=== PATIENT | female | born 1955 | race Caucasian/White ===

== ENCOUNTER 2018-09-19 08:30 | Outpatient (CLI) | payer MEDICARE, OTHER ==
[2018-09-19 08:59] LABS: Estimated GFR-MDRD - POC Greater than 90
--- NOTE | 2018-09-19 10:26 | CT ---
Contrast-enhanced images of soft tissue neck HISTORY: Calcified mass seen dentist office. Contrast-enhanced CT images soft tissue neck demonstrates the parotid spaces to be unremarkable. No evidence of lymphadenopathy seen. There there is marked calcification seen at the junction of the cervical right internal carotid arter y and the right petrous ICA. This is circumferential and coarsely calcified. This may represent a calcified area of aneurysmal dilatation. Superior inferior length measures approximately 2 cm. Axial diameter measures approximately 8.5 mm. The inner lumen diameter is not significantly increased. Contrast remains in the lumen and does flows past this area of the internal carotid artery calcificat ion into the more distal and intracranial portions of the ICA. Findings suggest a chronic likely partially thrombosed ICA aneurysm with central patent lumen. No other significant soft tissue neck abnormality seen. IMPRESSION: likely chronically calcified distal right ICA aneurysm.
[2018-09-19] MEDS ORDERED: ISOVUE-370 76%-LOCM 1 ML ONE (11:02)
--- NOTE | 2018-09-19 11:03 | CT ---
Contrast-enhanced images of soft tissue neck HISTORY: Calcified mass seen dentist office. Contrast-enhanced CT images soft tissue neck demonstrates the parotid spaces to be unremarkable. [place] no evidence of lymphadenopathy seen. There there is marked calcification seen at the junction of the cervical right internal carotid arter y and the petrous right ICA. This is circumferential and coarsely calcified. This may represent a calcified area of aneurysmal dilatation. Superior inferior length measures approximately 2 cm. Axial diameter measures approximately 8.5 mm. The inner lumen diameter is not significantly increased. Contrast remains in the lumen and does flows past this area of the internal carotid artery calcificat ion into the more distal and intracranial portions of the ICA. Findings suggest a chronic likely partially thrombosed ICA aneurysm with central patent lumen. No other significant soft tissue neck abnormality seen. IMPRESSION: likely chronically calcified distal right ICA aneurysm. Transcribed Date/Time: 09/19/2018 11:12 AM
== END 2018-09-19 08:31 | disposition home or self-care (01) ==
LOC: BICCT 08:30
PROVIDERS: ATTEND Specialist
DX: R22.1 Localized swelling, mass and lump, neck (principal); R93.89 Abnormal findings on diagnostic imaging of other specified body structures
CPT/HCPCS: 70470; 70491; 82565; Q9966

== ENCOUNTER 2020-02-27 08:58 | Outpatient (CLI) | payer MEDICARE ==
--- NOTE | 2020-02-27 09:27 | MMO ---
Right Breast MAMMO Unilat Diag DDI RT+LITTLE. CLINICAL HISTORY: Patient is 64 years old and is seen for diagnostic exam. VIEWS: The views performed were: . FILMS COMPARED: The present examination has been compared to prior imaging studies performed at [facility] on 02/19/2020, and at [facility] on 08/28/2008, 08/11/2011 and 02/25/2015. This study has been interpreted with the assistance of computer-aided detection. MAMMOGRAM FINDINGS: There are scattered fibroglandular densities. There is a stable focal asymmetry seen in the upper-outer region of the right breast. There are no suspicious masses, suspicious calcifications, or new areas of architectural distortion. IMPRESSION: THERE IS NO MAMMOGRAPHIC EVIDENCE OF MALIGNANCY. A ROUTINE FOLLOW-UP MAMMOGRAM IN 1 YEAR IS RECOMMENDED. THE RESULTS OF THIS EXAM WERE SENT TO THE PATIENT. ACR BI-RADS Category 2 - Benign finding MAMMOGRAPHY NOTE: 1. A negative mammogram report should not delay a biopsy if a dominant of clinically suspicious mass is present. 2. Approximately 10% to 15% of breast cancers are not detected by mammography. 3. Adenosis and dense breasts may obscure an underlying neoplasm. Reported by: LEONARDA LEDBETTER MD Electonically Signed: [id number]
== END 2020-02-27 08:59 | disposition home or self-care (01) ==
LOC: BICMAMMO 08:58
PROVIDERS: ATTEND Internal Medicine
DX: R92.1 Mammographic calcification found on diagnostic imaging of breast (principal)
CPT/HCPCS: 77065; G0279

== ENCOUNTER 2020-04-20 04:26 | Inpatient (IN) | payer MEDICARE ==
[2020-04-20 07:07] LABS: #Eosinphils 0.1 thou/uL (0.0-0.7); #Lymphocytes 0.8 thou/uL (1.20-3.40); #Monocytes 0.5 thou/uL (0.11-0.59); #Neutrophils 8.7 thou/uL (1.40-6.50); %Basophils 0.1 % (0.0-1.0); %Eosinophils 1.1 % (0.0-10.0); %Lymphocytes 7.7 % (21.0-51.0); %Monocytes 4.4 % (0.0-10.0); %Neutrophils 86.7 % (42.0-75.0); Hemoglobin 13.6 g/dL (12.0-16.0); Mean Corpuscular HGB CONC 33.2 g/dL (32.0-36.0); Mean Corpuscular Hemoglobin 30.5 pg (27.0-31.0); Mean Corpuscular Volume 92.1 fL (78.0-98.0); Mean Platelet Volume 6.9 fL (7.4-10.4); Platelet Count 190 thou/uL (130-400); RBC Distribution Width 13.4 % (11.5-14.5); Red Blood Cell (RBC) Count 4.45 mill/uL (4.20-5.40)
[2020-04-20 07:12] LABS: INR-International Normal Ratio 0.9; PTT 25.2 sec (22.9-36.1); Prothrombin Time 12.4 sec (12.0-14.7)
[2020-04-20 07:26] LABS: ALT (SGPT) 13 U/L (8-55); AST (SGOT) 12 U/L (5-34); Albumin 3.8 g/dL (3.4-4.8); Alkaline Phosphatase 59 U/L (40-110); Anion Gap 16 mmol/L (10-20); BUN (Urea Nitrogen) 19 mg/dL (9.8-20.1); Bilirubin, Total 0.5 mg/dL (0.2-1.2); Calc. Creatinine Clearance 0 mL/min (70-130); Calcium 8.9 mg/dL (7.8-10.44); Carbon Dioxide 28 mmol/L (23-31); Chloride 102 mmol/L (98-107); Globulin 2.5 g/dL (2.4-3.5); Glucose 145 mg/dL (80-115); Potassium 4.6 mmol/L (3.5-5.1); Protein, Total 6.3 g/dL (6.0-8.3); Sodium 141 mmol/L (136-145)
[2020-04-20 08:12] LABS: SARS-CoV-2 NAA Rapid Test Not Detected (NotDetected)
[2020-04-20] MEDS ORDERED: Fentanyl 100 MCG/2 ML VIAL ONE ×3 (08:14→10:53)
[2020-04-20] MEDS ORDERED: Promethazine HCl 25 MG/ML VIAL SLOW IVP PRN (10:37)
[2020-04-20] MEDS ORDERED: diphenhydrAMINE 50 MG/ML VIAL IVP PRN (10:37)
[2020-04-20] MEDS ORDERED: diphenhydrAMINE 25 MG CAP PO PRN (10:37)
[2020-04-20] MEDS ORDERED: Promethazine HCl 25 MG/ML VIAL IM PRN ×3 (10:37→10:48)
[2020-04-20] MEDS ORDERED: Zolpidem Tartrate 5 MG TAB PO PRN (10:37)
[2020-04-20] MEDS ORDERED: Ondansetron PF 4 MG/2 ML Vial IVP PRN ×2 (10:37→10:48)
[2020-04-20] MEDS ORDERED: Naloxone HCl 0.4 mg/ml Vial IV PRN (10:37)
[2020-04-20] MEDS ORDERED: diphenhydrAMINE 50 MG/ML VIAL IM PRN (10:37)
[2020-04-20] MEDS ORDERED: fentaNYL Citrate/PF 2,000 MCG in Sodium Chloride 0.9% 60 ML IV PRN (10:37)
[2020-04-20] MEDS ORDERED: Ondansetron HCl/PF 4 MG/2 ML Vial IVP PRN (10:37)
[2020-04-20] MEDS ORDERED: Communication Order-Pharmacy FS SCH (10:45)
[2020-04-20] MEDS ORDERED: Dextrose 5% in Water 1,000 ML IV PRN (10:48)
[2020-04-20] MEDS ORDERED: hydrALAZINE 20 MG/ML VIAL SLOW IVP PRN (10:48)
[2020-04-20] MEDS ORDERED: Dextrose 50% Abboject 50 ML SYRINGE SLOW IVP PRN (10:48)
[2020-04-20] MEDS ORDERED: Ketorolac Tromethamine 30 MG/ML VIAL IVP PRN (10:48)
--- NOTE | 2020-04-20 10:51 | HP ---
CHIEF COMPLAINT: Incarcerated hernia. HISTORY OF PRESENT ILLNESS: This is a 64-year-old female with a history of abdominal pain for a few days, associated with nausea, vomiting, abdominal swelling. The patient previously had a large uterine fibroid removed. In the process of that, she had to be transferred to [place] to Dr. Nagy, so she has quite a large midline incision. CT scan shows 3 hernias, one of which has small intestine in it that appears to be obstructed. The patient's pain has been difficult to control. She was transferred in from [facility]. PAST MEDICAL HISTORY: Includes high cholesterol, hypertension, diabetes mellitus. PAST SURGICAL HISTORY: Hysterectomy. MEDICATIONS: Taken daily include: 1. Lisinopril. 2. Statin. 3. Metformin. ALLERGIES: NO KNOWN DRUG ALLERGIES. SOCIAL HISTORY: No smoking or alcohol or other drugs. REVIEW OF SYSTEMS: Ten-system review of systems is otherwise negative unless described above. PHYSICAL EXAMINATION: HEENT: Sclerae anicteric. Oropharynx clear. NECK: No lymphadenopathy. CHEST: Clear. HEART: Regular rate. ABDOMEN: Soft. Diffusely tender, moderately without guarding or rebound. Because of her obesity, it is difficult to feel her hernias. CT scan reviewed showing above hernia-type changes. ASSESSMENT: Incarcerated incisional hernia. PLAN: Incisional hernia repair with mesh. If possible, she may need small bowel resection if ischemia present. We will do this today urgently. Job ID: [id number]
--- NOTE | 2020-04-20 11:09 | OP ---
DATE OF PROCEDURE: 04/20/2020 PREOPERATIVE DIAGNOSIS: Incarcerated incisional hernia. POSTOPERATIVE DIAGNOSIS: Incarcerated incisional hernia. PROCEDURE: Incisional hernia repair with mesh, 15 [address] ANESTHESIA: General. ESTIMATED BLOOD LOSS: Minimal. COMPLICATIONS: None. FINDINGS: Three different hernias. The one in the umbilicus has some small intestine that is nonischemic. DESCRIPTION OF PROCEDURE: The patient was taken to the operating room and laid supine on the operating room table. After general anesthetic was obtained, a Hernandez was placed. The abdomen was shaved, prepped, and draped in a sterile fashion. A midline incision was made. The abdomen was able to be entered in the xiphoid area without injury. The midline fascia was opened through the hernia sac at the umbilicus without injury. All posterior abdominal wall adhesions were taken down. There were several small hernias all of which had a loop of small intestine or colon and then this was easily to reduce. All adhesions were taken down exposing the posterior fascia throughout. The 15 x [address] mesh was brought into the sterile field. It is the one with the skirt on top, placed in an underlay fashion and sewed to the posterior fascia using U-stitch of Prolene all the way around without injury. This completely covered the defect. All instrument counts, needle counts, lap counts were correct. Midline fascia was then closed using #1 PDS from the top and the bottom and tied in the middle. Subcutaneous tissues were irrigated and the wound was closed over a 19-round drain using 3-0 Vicryl, 4-0 Monocryl, and Dermabond. The patient was sent to Recovery in stable condition. All instrument counts, needle counts, lap counts were correct. Job ID: [id number]
[2020-04-20] MEDS ORDERED: Dexamethasone 20 MG/5 ML VIAL ONE (12:47)
[2020-04-20] MEDS ORDERED: Glycopyrrolate 0.2 MG/ML 5 ML SYRINGE ONE (12:47)
[2020-04-20] MEDS ORDERED: Ondansetron PF 4 MG/2 ML Vial ONE (12:47)
[2020-04-20] MEDS ORDERED: PROPOFOL 200 MG/20 ML VIAL ONE (12:47)
[2020-04-20] MEDS ORDERED: Lidocaine 1% PF 5 ML VIAL ONE (12:47)
[2020-04-20] MEDS ORDERED: PHENYLEPHRINE-NS 100 MCG/ML 10 ML SYRINGE ONE (12:47)
[2020-04-20] MEDS ORDERED: Rocuronium Bromide 10 MG/ML (10ML VIAL) ONE (12:47)
[2020-04-20] MEDS ORDERED: Succinylcholine 200 MG/10 ml SYRINGE FS ONE (12:47)
[2020-04-20] MEDS: Sodium Chloride 0.9% 1,000 ML IV SCH ×2 (17:00→20:21)
[2020-04-20] MEDS: Enoxaparin Sodium 40 MG/0.4 ML SYRINGE SC SCH (20:16)
[2020-04-20] MEDS: Famotidine/PF 20 mg/2ml Vial SLOW IVP SCH (20:16)
[2020-04-20] MEDS: Famotidine 20 MG TAB PO SCH (20:17)
[2020-04-20 22:32] VITALS: BMI 43.4
[2020-04-21 05:40] LABS: #Lymphocytes 1.2 thou/uL (1.20-3.40); #Monocytes 0.7 thou/uL (0.11-0.59); #Neutrophils 7.8 thou/uL (1.40-6.50); %Eosinophils 0.2 % (0.0-10.0); %Lymphocytes 12.7 % (21.0-51.0); %Neutrophils 80.2 % (42.0-75.0); Hemoglobin 11.6 g/dL (12.0-16.0); Mean Corpuscular HGB CONC 31.3 g/dL (32.0-36.0); Mean Corpuscular Hemoglobin 29.1 pg (27.0-31.0); Mean Corpuscular Volume 93.1 fL (78.0-98.0); Mean Platelet Volume 7.5 fL (7.4-10.4); Platelet Count 164 thou/uL (130-400); RBC Distribution Width 13.2 % (11.5-14.5); Red Blood Cell (RBC) Count 3.98 mill/uL (4.20-5.40); White Blood Cell (WBC) Count 9.7 thou/uL (4.8-10.8)
[2020-04-21 05:48] LABS: Anion Gap 14 mmol/L (10-20); BUN (Urea Nitrogen) 12 mg/dL (9.8-20.1); Calc. Creatinine Clearance 157 mL/min (70-130); Calcium 8.2 mg/dL (7.8-10.44); Carbon Dioxide 28 mmol/L (23-31); Chloride 103 mmol/L (98-107); Glucose 130 mg/dL (80-115); Potassium 3.7 mmol/L (3.5-5.1); Sodium 141 mmol/L (136-145)
[2020-04-21] MEDS: Famotidine/PF 20 mg/2ml Vial SLOW IVP SCH ×2 (08:04→21:02)
--- NOTE | 2020-04-21 08:43 | PRG ---
DATE OF SERVICE: 04/21/2020 SUBJECTIVE: Ms. Rogers is doing well. She has no complaints. She did not have any nausea overnight. She was out of bed once yesterday. PHYSICAL EXAMINATION: VITAL SIGNS: She is afebrile. Vital signs are stable. ABDOMEN: Soft, appropriately tender. Wounds are healing well. Drain is serosanguineous. ASSESSMENT: Postoperative day #1, incisional hernia repair. PLAN: Try clear liquids. Decrease IV fluids. Encouraged ambulation. Job ID: [id number]
[2020-04-21] MEDS: Sodium Chloride 0.9% 1,000 ML IV SCH ×2 (11:53→12:22)
[2020-04-21] MEDS: Famotidine 20 MG TAB PO SCH ×2 (11:53→21:02)
[2020-04-21] MEDS: HumaLOG 300 UNITS/3 ML VIAL SC PRN (12:01)
[2020-04-21] MEDS: Enoxaparin Sodium 40 MG/0.4 ML SYRINGE SC SCH (21:01)
[2020-04-22] MEDS: Sodium Chloride 0.9% 1,000 ML IV SCH ×2 (01:39→12:07)
[2020-04-22] MEDS: Famotidine/PF 20 mg/2ml Vial SLOW IVP SCH ×2 (09:03→20:31)
[2020-04-22] MEDS: Famotidine 20 MG TAB PO SCH ×2 (09:05→20:30)
--- NOTE | 2020-04-22 09:10 | PDOC.GSPN ---
Surgery Progress Note: Subj - Subjective Patient reports: pain well controlled, tolerating liquids well Narrative: Ms. Rogers is doing well. She has gotten out of bed more and was able to walk ar ound. Her pain is well controlled; she mostly notes pain when getting up out of the bed or with standing up. She will try solid foods today. She reports no nausea, vomiting, and has not had a bowel movement or passed gas. Surgery Progress Note: Obj - Vital signs Vital signs: Vital Signs - Most Recent Temp Pulse Resp BP Pulse Ox 98.4 F 112 H 20 138/84 91 L 04/22/20 08:00 04/22/20 08:00 04/22/20 08:00 04/22/20 08:00 04/22/20 08:00 - Physical Exam General: no distress, no pain Cardiovascular: regular rate and rhythm Respiratory: clear to auscultation Abdomen: soft, positive bowel sounds, appropriately tender Psychiatric: oriented to time, oriented to person, oriented to place Wound: dressing clean,dry,intact, healing well, drainage (50 mL) Surgery Progress Note: Results - Labs Result Diagrams: 04/21/20 05:13 04/21/20 05:13 Lab results: Laboratory Results - last 12 hr 04/22/20 05:14 POC Glucose 130 H Surgery Progress Note: A/P - Problem (1) Incisional hernia Current Visit: Yes Code(s): K43.2 - INCISIONAL HERNIA WITHOUT OBSTRUCTION OR GANGRENE Status: Acute - Plan Plan: Encouraged her to sit up in the chair as this helped some abdominal pressu re/pain she reported when lying in the bed. Will continue current medication regimen since pain is under control; pain mainly occurs with sitting or standing up. Will see how she tolerates solid food. We discussed discharge, and she reported that she would like to see if she can get up from the bed/chair without too much pain.
[2020-04-22] MEDS ORDERED: HYDROcodone/Acetaminophen 10/325 mg Tablet PO PRN ×2 (11:24→12:00)
[2020-04-22] MEDS: HumaLOG 300 UNITS/3 ML VIAL SC PRN (12:07)
--- NOTE | 2020-04-22 13:35 | PRG ---
DATE OF SERVICE: SUBJECTIVE: Postop day 2, incisional hernia repair with mesh. Ms. oRgers is tolerating the liquid diet without difficulty. Her Hernandez was removed this morning. She has already urinated. She is ambulatory. She is complaining of bloating. OBJECTIVE: VITAL SIGNS: She is afebrile. Her vital signs are stable. ABDOMEN: Soft. It is distended, but she does have some bowel sounds. Her midline wound is healing well. CAMRON drain is serosanguineous. ASSESSMENT: Postop day 2, ventral incisional hernia repair with mesh. PLAN: Continue full liquids today. Continue to encourage ambulation. We will slow down on her IV fluids. Possible home tomorrow. Job ID: [id number]
[2020-04-22] MEDS: HYDROcodone/Acetaminophen 10/325 mg Tablet PO PRN ×2 (15:55→20:30)
[2020-04-22] MEDS: Enoxaparin Sodium 40 MG/0.4 ML SYRINGE SC SCH (20:31)
[2020-04-23] MEDS: HYDROcodone/Acetaminophen 10/325 mg Tablet PO PRN ×2 (06:09→11:41)
--- NOTE | 2020-04-23 07:16 | PDOC.GSPN ---
Surgery Progress Note: Subj - Subjective Patient reports: no new complaints, feels better, pain well controlled, tolerati ng liquids well, no bowel movement Narrative: Patient feels much better this morning. She says that the bloating she had previously felt was likely due to needing to urinate and was relieved as soon as she was able to void. She is unsure whether or not she has passed flatus. She reports feeling best when she is sitting in the chair in her room and says that she is in 2/10 pain. Her pain increases to 6/10 when she tries to get up from a supine position. She has been ambulatory over the past 2 days with little difficulty. Pt denies dizziness/lightheadedness, dyspnea, chest pain, palpitations, N/V, bloating, or cramping. No recent changes in sensation. Surgery Progress Note: Obj - Vital signs Vital signs: Vital Signs - Most Recent Temp Pulse Resp BP Pulse Ox 98.6 F 93 19 120/76 95 04/23/20 04:00 04/23/20 04:00 04/23/20 04:00 04/23/20 04:00 04/23/20 04:00 - Physical Exam General: no distress, well developed, well nourished Cardiovascular: regular rate and rhythm Respiratory: clear to auscultation, normal expansion, normal respiratory effort, breath sounds present Abdomen: soft, nondistended, positive bowel sounds, appropriately tender Hernia: negative: incisional, incarcerated Psychiatric: memory intact, oriented to time, oriented to person, oriented to place, speech is normal Wound: dressing clean,dry,intact, healing well, drainage (CAMRON drain has minimal amount of serosanguinous fluid) Surgery Progress Note: Results - Labs Result Diagrams: 04/21/20 05:13 04/21/20 05:13 Lab results: Laboratory Results - last 12 hr 04/22/20 04/23/20 20:15 05:33 POC Glucose 107 H 125 H Surgery Progress Note: A/P - Plan Plan: Postop day 3 from ventral incisional hernia incarceration repair Patient is ready for discharge later today. She is tolerating liquids well and able to ambulate on her own. D/c meds include Sapulpa 10/325 for pain control at home and Mirilax to help her pass BM since the patient reports difficulty with constipation in the past.
[2020-04-23] MEDS: Famotidine/PF 20 mg/2ml Vial SLOW IVP SCH (08:29)
[2020-04-23] MEDS: Famotidine 20 MG TAB PO SCH (08:36)
--- NOTE | 2020-04-23 10:28 | DIS ---
DATE OF ADMISSION: 04/20/2020 DATE OF DISCHARGE: 04/23/2020 ADMITTING DIAGNOSIS: Incarcerated incisional hernia. DISCHARGE DIAGNOSIS: Incarcerated incisional hernia. PROCEDURES: Incarcerated incisional hernia repair with mesh by Dr. Champion without complication. CONDITION ON DISCHARGE: Improved. STAFF: Jones Champion MD HOSPITAL COURSE: The patient did well postop. On postop day 2, she is ambulatory. Pain is well controlled. She is tolerating the full liquid diet without difficulty. Her drain is removed. She is being discharged home. Prescriptions for hydrocodone and Zofran sent to her pharmacy. She will follow up with me in 1 week. She will call my office sooner if she is having any issues. Job ID: [id number]
[2020-04-23 13:03] VITALS: BP 130/99; TEMP 98.2
== END 2020-04-23 13:55 | disposition home or self-care (01) | DRG 354 ==
LOC: ERS 04:26 → SURG A 10:48
PROVIDERS: ADMIT Surgery; ATTEND Surgery
PROC: 0WUF0JZ Supplement Abdominal Wall with Synthetic Substitute, Open Approach (ICD-10-PCS; principal; 2020-04-20)
DX: K43.0 Incisional hernia with obstruction, without gangrene (principal); Z68.41 Body mass index [BMI] 40.0-44.9, adult; Z20.822 Contact with and (suspected) exposure to COVID-19; I10 Essential (primary) hypertension; E11.9 Type 2 diabetes mellitus without complications; E78.00 Pure hypercholesterolemia, unspecified; E66.9 Obesity, unspecified; Z90.710 Acquired absence of both cervix and uterus; Z79.84 Long term (current) use of oral hypoglycemic drugs; Z79.899 Other long term (current) drug therapy
CPT/HCPCS: 36415; 36416; 80048; 80053; 83605; 85025; 85610; 85730; C1781; J0690; J1100; J1650; J2405; J2704; J3010; J3490; S0028; U0002

== ENCOUNTER 2020-06-07 07:17 | Observation (INO) | payer MEDICARE ==
[2020-06-07 07:53] LABS: Mean Corpuscular HGB CONC 34.9 g/dL (32.0-36.0); Mean Corpuscular Hemoglobin 31.2 pg (27.0-31.0); Mean Corpuscular Volume 89.3 fL (78.0-98.0); Mean Platelet Volume 6.9 fL (7.4-10.4); Platelet Count 136 thou/uL (130-400); RBC Distribution Width 13.3 % (11.5-14.5); Red Blood Cell (RBC) Count 4.16 mill/uL (4.20-5.40); White Blood Cell (WBC) Count 5.2 thou/uL (4.8-10.8)
[2020-06-07 08:14] LABS: ALT (SGPT) 436 U/L (8-55); AST (SGOT) 891 U/L (5-34); Albumin 3.9 g/dL (3.4-4.8); Alkaline Phosphatase 129 U/L (40-110); Anion Gap 16 mmol/L (10-20); BUN (Urea Nitrogen) 22 mg/dL (9.8-20.1); Bilirubin, Total 1.7 mg/dL (0.2-1.2); Calc. Creatinine Clearance 0 mL/min (70-130); Calcium 8.8 mg/dL (7.8-10.44); Carbon Dioxide 27 mmol/L (23-31); Chloride 98 mmol/L (98-107); Globulin 2.7 g/dL (2.4-3.5); Glucose 138 mg/dL (80-115); Lipase 155 U/L (8-78); Potassium 3.5 mmol/L (3.5-5.1); Protein, Total 6.6 g/dL (5.8-8.1); Sodium 137 mmol/L (136-145)
[2020-06-07 08:23] LABS: Band 42 % (5-11); Lymphocytes 9 % (21-51); MDiff Complete? YES; Metamyelocyte 1 % (0-0); Monocytes 1 % (0-10); Neutrophil 44 % (42-75); Platelet Morphology Comment Appears Adequate; Polychromasia SLIGHT = 2-3 cells (100X) (0-2/hpf); Reactive Lymphocytes 3 % (0-10); Reflex for Review?? YES; Vacuoles SLIGHT
[2020-06-07 08:44] LABS: Bilirubin Negative (Negative); Blood, Urine Negative (Negative); Clarity Clear (Clear); Glucose, Urine (Dipstick) Normal (Negative); Ketone, Urine Negative (Negative); Leukocyte Negative Leu/uL (Negative); Nitrite Negative (Negative); Protein, Urine (Dipstick) Negative (Neg-Trace); Specific Gravity, Urine 1.018 (1.002-1.036); Urobilinogen Normal mg/dL (Less than 2); pH, Urine 5.5 (5.0-9.0)
--- NOTE | 2020-06-07 09:51 | CT ---
CT ABDOMEN AND PELVIS WITH CONTRAST: HISTORY: Abdominal pain. COMPARISON: None. FINDINGS: Lung bases are relatively clear. No pericardial effusion. Small diverticula in the 2nd portion of the duodenum. There are numerous supraumbilical and infraumbilical fat-containing hernias. Inflammation along an i nfraumbilical and periumbilical fat-containing hernia. Possible prior mesh repair of the ventral her nias with inflammation of the subcutaneous fat on the left abdominal panus extending t the skin surfa ce. Large midline vertical abdominal scar. Mild distention of the gallbladder. No intrahepatic or extrahepatic biliary dilatation. Small secon d portion duodenum diverticulum. Pancreas is unremarkable as well as the adrenal glands. No hydrone phrosis. There is grade II anterolisthesis of L5 over S1. No acute osseous abnormality. Celiac trunk and superior mesenteric arteries are patent. A few small cholelithiasis within the gall bladder neck. IMPRESSION: 1. Extensive left lower abdominal panus cellulitis with inflammation extending down to the ventral h ernia mesh. There is a trace fluid collection just superficial to the mesh extending from the bottom . The caudal portion of the mesh craniad 8 cm. This could be reactive or due to relatively recent p lacement of the ventral hernia mesh. 2. Numerous small fat-containing supraumbilical subxiphoid fat-containing hernias. 3. Low-grade cholelithiasis and mild gallbladder distention without overt evident of cholecystitis. 4. Small second portion duodenum diverticulum. 5. No bowel obstruction. 6. Normal appendix. 7. Likely reactive right pericolic gutter lymph node axilla measuring 9 mm short axis. POS: HOME
--- NOTE | 2020-06-07 10:24 | ULT ---
RIGHT UPPER QUADRANT ABDOMINAL ULTRASOUND: COMPARISON: CT abdomen/pelvis 06/07/2020. HISTORY: Abdominal pain. TECHNIQUE: Multiplanar, lucio scale, and color Doppler images were obtained in a right upper quadrant abdominal u ltrasound. FINDINGS: There is mild diffuse fatty infiltration of the liver. No focal liver lesions are seen. The gallbla dder contains a small stone. There is no gallbladder wall thickening or pericholecystic fluid. The common bile duct is upper normal measuring 7 mm. The visualized portions of the pancreas are unremarkable. The right kidney is normal in echogenicity without hydronephrosis or calculus and measures 13.4 cm in length. IMPRESSION: 1. Cholelithiasis. 2. Fatty liver. POS: EAA
[2020-06-07 10:58] LABS: Critical Call Chem-Lactate NUR.KR7@1057; Lactic Acid 4.1 mmol/L (0.5-2.2)
[2020-06-07] MEDS ORDERED: Iopamidol-370 76% 500 ML 1 ML ONE (11:09)
[2020-06-07] MEDS ORDERED: Mag-Al 1200 mg/1200 mg/30 ML UDCUP PO PRN (12:25)
[2020-06-07] MEDS ORDERED: hydrALAZINE 20 MG/ML VIAL SLOW IVP PRN (12:25)
[2020-06-07] MEDS ORDERED: Acetaminophen 325 MG TAB PO PRN (12:25)
[2020-06-07] MEDS ORDERED: HumaLOG 300 UNITS/3 ML VIAL SC PRN (12:25)
[2020-06-07] MEDS ORDERED: Dextrose 50% Abboject 50 ML SYRINGE SLOW IVP PRN ×2 (12:25)
[2020-06-07] MEDS ORDERED: Ondansetron PF 4 MG/2 ML Vial IVP PRN (12:25)
[2020-06-07] MEDS ORDERED: Morphine 2 MG/ML VIAL SLOW IVP PRN (12:25)
[2020-06-07] MEDS ORDERED: Calcium Carbonate 500 MG ChewTAB PO PRN (12:25)
[2020-06-07] MEDS ORDERED: Morphine 4 MG/ML VIAL SLOW IVP PRN (12:25)
[2020-06-07] MEDS ORDERED: Dextrose 5% in Water 1,000 ML IV PRN (12:25)
[2020-06-07] MEDS ORDERED: Milk Of Magnesia 30 ML UDCUP PO ONE (12:25)
[2020-06-07] MEDS ORDERED: Promethazine HCl 25 MG/ML VIAL IM PRN (12:25)
[2020-06-07] MEDS ORDERED: Milk Of Magnesia 30 ML UDCUP ONE (12:44)
[2020-06-07] MEDS ORDERED: Pantoprazole 40 MG VIAL ONE (12:51)
[2020-06-07] MEDS: Pantoprazole 40 MG VIAL IVP SCH (12:55)
[2020-06-07] MEDS: Sodium Chloride 0.9% 1,000 ML IV SCH ×2 (13:41→19:48)
--- NOTE | 2020-06-07 15:57 | HP ---
CHIEF COMPLAINT: Abdominal pain. HISTORY OF PRESENT ILLNESS: This is a 64-year-old female, who is status post incisional hernia repair with mesh on 04/20/2020 by myself. She had presented with incarcerated incisional hernia. This was secondary to previous gynecologic/oncology procedure by Dr. Nagy in [place]. Postop course was uneventful. She had acute onset of severe pain overnight, was seen at an outpatient emergency room, whose CT scanner was down, so she was sent here for higher level of care. CT scan shows no significant recurrent hernia. No evidence of fluid collection near the mesh. No evidence of obstruction in the abdomen. The gallbladder did appear distended on the CT scan. She was also found to have elevation of her liver function test. Ultrasound here shows presence of a gallstone. Common bile duct is normal. No gallbladder wall thickening or pericholecystic fluid. The patient's pain has resolved, although she does feel bloated. She states it has been several days since she had a bowel movement. PAST MEDICAL HISTORY: Includes hypercholesteremia, hypertension, diabetes. PAST SURGICAL HISTORY: Hysterectomy. HOME MEDICATIONS: 1. Statin. 2. Metformin. 3. Vitamins. 4. Lisinopril. ALLERGIES: NO KNOWN DRUG ALLERGIES. SOCIAL HISTORY: No smoking, alcohol, or other drugs. She is . REVIEW OF SYSTEMS: Ten-system review of systems is otherwise negative unless described above. PHYSICAL EXAMINATION: VITAL SIGNS: Her pulse is 105, her blood pressure was 157/85, respirations are normal at 14. HEART: Regular rate. CHEST: Bilateral clear. ABDOMEN: Soft, minimally distended. No tenderness on my exam now. Midline incision from hernia repair is nearly completely healed without evidence of drainage, open wound, no evidence of cellulitis, no overt obvious recurrent hernia. ASSESSMENT: 1. Abdominal pain, diffuse and severe, resolved. 2. Elevation of liver function test, presence of gallstones on ultrasound, but symptoms not consistent with biliary disease. 3. Constipation. PLAN: Admit to the hospital, allow clear liquids, we will give her a dose of milk of magnesia, and recheck the liver function test in the morning. If liver function test persistently elevated, options would be laparoscopic cholecystectomy with cholangiogram versus HIDA scan to further evaluate the biliary tract. Dr. Rendon will be seeing her for me. Job ID: [id number]
[2020-06-07 19:15] VITALS: BMI 40.6
[2020-06-07] MEDS ORDERED: Enoxaparin Sodium 40 MG/0.4 ML SYRINGE SC SCH (21:00)
[2020-06-08 07:12] LABS: #Eosinphils 0.1 thou/uL (0.0-0.7); #Lymphocytes 0.4 thou/uL (1.20-3.40); #Monocytes 0.3 thou/uL (0.11-0.59); #Neutrophils 8.6 thou/uL (1.40-6.50); %Eosinophils 1.1 % (0.0-10.0); %Lymphocytes 4.5 % (21.0-51.0); %Monocytes 3.1 % (0.0-10.0); %Neutrophils 91.4 % (42.0-75.0); Hemoglobin 11.1 g/dL (12.0-16.0); Mean Corpuscular HGB CONC 31.4 g/dL (32.0-36.0); Mean Corpuscular Hemoglobin 28.4 pg (27.0-31.0); Mean Corpuscular Volume 90.3 fL (78.0-98.0); Mean Platelet Volume 7.5 fL (7.4-10.4); Platelet Count 129 thou/uL (130-400); RBC Distribution Width 13.7 % (11.5-14.5); Red Blood Cell (RBC) Count 3.92 mill/uL (4.20-5.40); White Blood Cell (WBC) Count 9.4 thou/uL (4.8-10.8)
[2020-06-08 07:49] LABS: ALT (SGPT) 399 U/L (8-55); AST (SGOT) 282 U/L (5-34); Albumin 3.3 g/dL (3.4-4.8); Alkaline Phosphatase 119 U/L (40-110); Anion Gap 9 mmol/L (10-20); BUN (Urea Nitrogen) 13 mg/dL (9.8-20.1); Bilirubin, Total 3.8 mg/dL (0.2-1.2); Calc. Creatinine Clearance 142 mL/min (70-130); Calcium 8.2 mg/dL (7.8-10.44); Carbon Dioxide 30 mmol/L (23-31); Chloride 104 mmol/L (98-107); Globulin 2.4 g/dL (2.4-3.5); Glucose 149 mg/dL (80-115); Lipase 12 U/L (8-78); Potassium 3.3 mmol/L (3.5-5.1); Protein, Total 5.7 g/dL (5.8-8.1); Sodium 140 mmol/L (136-145)
[2020-06-08] MEDS: Pantoprazole 40 MG VIAL IVP SCH (08:55)
[2020-06-08] MEDS: Sodium Chloride 0.9% 1,000 ML IV SCH (08:55)
[2020-06-08] MEDS ORDERED: Lisinopril 2.5 MG TAB PO SCH (09:00)
[2020-06-08] MEDS ORDERED: Rocuronium Bromide 10 MG/ML (10ML VIAL) ONE (09:22)
[2020-06-08] MEDS ORDERED: ePHEDrine 50 MG/ML VIAL ONE (09:22)
[2020-06-08] MEDS ORDERED: PROPOFOL 200 MG/20 ML VIAL ONE (09:22)
[2020-06-08] MEDS ORDERED: Ketorolac Tromethamine 30 MG/ML VIAL ONE (09:22)
[2020-06-08] MEDS ORDERED: Lidocaine 1% PF 5 ML VIAL ONE (09:22)
[2020-06-08] MEDS ORDERED: PHENYLEPHRINE-NS 100 MCG/ML 10 ML SYRINGE ONE (09:22)
[2020-06-08] MEDS ORDERED: Dexamethasone 20 MG/5 ML VIAL ONE (09:22)
[2020-06-08] MEDS ORDERED: Glycopyrrolate 0.2 MG/ML 5 ML SYRINGE ONE (09:22)
[2020-06-08] MEDS ORDERED: Ondansetron PF 4 MG/2 ML Vial ONE (09:22)
[2020-06-08] MEDS ORDERED: Ketorolac Tromethamine 30 MG/ML VIAL IVP SCH (10:30)
[2020-06-08] MEDS ORDERED: Iothalamate Meglumine 60% 50 ML VIAL FS ONE ×2 (11:06→11:24)
[2020-06-08] MEDS ORDERED: Indomethacin 50 MG SUPP ONE (11:07)
[2020-06-08] MEDS ORDERED: Bupivacaine 0.25% HCL 30 ML VIAL ONE (11:15)
[2020-06-08] MEDS ORDERED: XYLOCAINE 2%-EPI 1:100,000 20 ML VIAL ONE (11:15)
[2020-06-08] MEDS ORDERED: Fentanyl 100 MCG/2 ML VIAL ONE ×2 (11:23→13:47)
[2020-06-08] MEDS ORDERED: Dexmedetomidine 200 MCG/2 ML VIAL ONE (11:23)
--- NOTE | 2020-06-08 12:05 | PRG ---
DATE OF SERVICE: 06/08/2020 SUBJECTIVE: Carolyn Rogers is a 64-year-old female, Dr. Champion, admitted yesterday for abdominal pain. CAT scan and ultrasound revealed gallstones. Ultrasound revealed a 9 mm bile duct. Yesterday, her white count was 9, hemoglobin 11.1, bilirubin 1.7 yesterday, 3.8 today. AST and ALT 891 and 436 respectively yesterday, and today 282 and 399. Alkaline phosphatase 129 yesterday, 119 today. The patient reports when she presented that she had severe upper abdominal pain radiating to her back associated with nausea and vomiting. She denies having such episodes of biliary type pain in the past. She states although her pain is markedly improved. She is still having some discomfort. Her bile duct was 9 mm on her ultrasound. She has seen Dr. Winston in the past for colonoscopy and due for repeat studies in the near future. The patient has no allergies. Does not smoke. PAST MEDICAL HISTORY: Hypercholesterolemia, hypertension, diabetes, oral hypoglycemics, noninsulin dependent. PAST SURGICAL HISTORY: She had a hysterectomy for benign fibroid, initially presenting to [facility], attempting hysterectomy, suffering complications requiring transfer to [place] for which she spent 3-4 weeks in ICU, eventually undergoing hysterectomy by Dr. Nagy for this benign entity. MEDICATIONS: She has had home medications, 1. Statin. 2. Metformin. 3. Vitamins. 4. Lisinopril. FAMILY HISTORY: Noncontributory. She never had any cardiac symptoms or cardiac evaluation or reason to do so. PHYSICAL EXAMINATION: VITAL SIGNS: 5 foot 1 inch, 215 pounds, 40 BMI, 97.6, 89, 115/76. LUNGS: Clear to auscultation. CARDIAC: Regular rate and rhythm without murmur or gallop. ABDOMEN: Soft. Tenderness in right upper quadrant with mild guarding. Positive Kim's. EXTREMITIES: Unremarkable. ASSESSMENT AND PLAN: Suspect acute cholecystitis, possible choledocholithiasis with her bile duct upper limits normal, lower limits abnormal, 9 mm dilatation at age 64 and her elevated liver function tests, this could lead to acute cholecystitis or choledocholithiasis. We would recommend laparoscopic video cholecystectomy, cholangiograms and if necessary based on she might need ERCP. I have discussed this with the patient and her , the risks of open operation and ERCP. I have discussed with Dr. Winston. Plan and recommendation today is laparoscopic cholecystectomy, cholangiograms and based on cholangiograms, ERCP if indicated. Questions answered. Risks and benefits discussed. Job ID: [id number]
[2020-06-08] MEDS ORDERED: PACU-Morphine 4MG/ML VIAL SLOW IVP PRN (13:33)
[2020-06-08] MEDS ORDERED: Ondansetron HCl/PF 4 MG/2 ML Vial IVP PRN (13:33)
[2020-06-08] MEDS ORDERED: Promethazine HCl 25 MG/ML VIAL IM PRN (13:33)
[2020-06-08] MEDS ORDERED: HYDROmorphone 2 MG/ML VIAL SLOW IVP PRN (13:33)
[2020-06-08] MEDS ORDERED: Promethazine HCl 25 MG/ML VIAL SLOW IVP PRN (13:33)
--- NOTE | 2020-06-08 13:46 | RAD ---
OPERATIVE CHOLANGIOGRAM: 06/08/20 HISTORY: Intraoperative film. Contrast is injected showing filling of a common duct and the proximal hepatic ducts without evidence of filling defect emptying into the duodenum is present. IMPRESSION: Unremarkable operative cholangiogram. POS: GRACE
[2020-06-08] MEDS ORDERED: Ibuprofen 600 MG TAB PO PRN (14:19)
[2020-06-08] MEDS ORDERED: Acetaminophen 500 MG TAB PO PRN (14:19)
[2020-06-08] MEDS ORDERED: traMADol HCl 50 MG TAB PO PRN (14:19)
[2020-06-08 16:49] VITALS: BP 136/83; TEMP 97.7
[2020-06-08] MEDS ORDERED: metFORMIN 500 MG TAB PO SCH (17:00)
--- NOTE | 2020-06-08 18:43 | DIS ---
DATE OF ADMISSION: 06/07/2020 DATE OF DISCHARGE: 06/08/2020 DISCHARGE DIAGNOSES: Cholecystitis, cholelithiasis, abnormal liver function tests, fatty liver, morbid obesity, diabetes, hypertension, adhesions from prior surgeries. PROCEDURES: CT scan of the abdomen and pelvis noting a gallstone. Abdominal ultrasound; common bile duct 9 mm, slightly upper limits of normal, mildly enlarged. Liver function tests on admission; bilirubin 1.7, on the morning of surgery 3.8, and normal previous hospital records prior to this admission. AST and ALT slightly elevated at 282 and 399 on the morning of surgery. Laparoscopic cholecystectomy, negative cholangiograms. CONSULTATIONS: Dr. Winston in case the ERCP was necessary. HISTORY: A 64-year-old female with past history of very large fibroid, attempted removal at [facility] resulting in complications requiring transfer to [facility], where Dr. Johnston performed hysterectomy for a very large fibroid. The patient in April underwent open repair incisional hernias by Dr. Champion. Mesh was used. The patient developed abdominal pain in the upper abdomen with back radiation, nausea, vomiting, and was admitted by Dr. Champion yesterday. She was observed overnight. Bilirubin increased. The patient's pain slightly improved. She was record press tender. HIDA scan considered, but thought not likely to contribute to decision-making process thus far gone and she underwent laparoscopic video cholecystectomy and cholangiograms, which did not reveal any filling defects and had good emptying to the common bile duct. Postoperatively, the patient was discharged home, to resume her home medications, see list as well as Tylenol, Motrin, and Ultram p.r.n. pain, Ultram #30, 50 mg sent to her pharmacy. Follow up with Dr. Rendon in 1 to 2 weeks with repeat liver function tests on the morning of that office visit. Job ID: [id number]
[2020-06-09] MEDS ORDERED: Pioglitazone HCl 15 MG TAB PO SCH (09:00)
[2020-06-09] MEDS ORDERED: Ascorbic Acid 500 mg Chewable Tablet PO SCH (09:00)
[2020-06-09] MEDS ORDERED: Polyethylene Glycol 3350 17 GM Packet PO SCH (09:00)
[2020-06-09] MEDS ORDERED: Cholecalciferol 1,000 UNITS (25 MCG) TAB PO SCH (09:00)
[2020-06-09] MEDS ORDERED: Loratadine 10 MG TAB PO SCH (09:00)
[2020-06-09] MEDS ORDERED: Hydrochlorothiazide 25 MG TAB PO SCH (09:00)
[2020-06-09] MEDS ORDERED: Docusate 100 MG CAP PO SCH (09:00)
--- NOTE | 2020-06-09 17:14 | OP ---
DATE OF PROCEDURE: 06/08/2020 PREOPERATIVE DIAGNOSES: Cholecystitis, cholelithiasis, possible choledocholithiasis, elevated liver function test, morbid obesity, and fatty liver. POSTOPERATIVE DIAGNOSES: Cholecystitis, cholelithiasis, normal cholangiogram, fatty liver. PROCEDURES PERFORMED: Laparoscopic video cholecystectomy, intraoperative cholangiograms using fluoroscopy. FINDINGS: Fatty liver, noninflamed gallbladder with stones. Normal cholangiogram. ANESTHESIA: General, local 0.5% Marcaine 30 mL mixed with 1% Xylocaine with epinephrine 20 mL. DESCRIPTION OF PROCEDURE: The patient was taken to the operating room, where under general anesthesia, abdomen was prepared with ChloraPrep and draped in routine fashion. Local anesthetic mixture was infiltrated into the skin and subcutaneous tissue about all port sites, surgical sites. Because of her previous midline incision, right subcostal incision made at midclavicular and anterior axillary lines and stab incision was made and pneumoperitoneum to 15 mmHg obtained with a Veress needle, replaced with a 5 port and remainder ports placed under laparoscopic visualization. Her anterior axillary line subcostal right incision made and a 5 port placed. Subxiphoid incision right made and 11 mm port placed. There were adhesions inferiorly. These were taken down with cold scissors. Adhesion free area noted in the right lateral mid abdomen just lateral to the umbilical level. Incision was made and a 5 port placed under laparoscopic visualization and video laparoscope moved to this port. Liver was fatty. Gallbladder was grasped, reflected cephalad. Infundibulum grasped, retracted laterally. It was not inflamed. Cystic artery and duct dissected free. Cystic duct was small. Clip placed on the gallbladder side. The cystic duct opening made in the cystic duct. Cholangiograms obtained. Inserting the cholangiocatheter was difficult initially. The cholangiocatheter I usually use would not manipulate into the cystic duct. Arrow cholangiocatheter was placed. The balloon became compromised. Thus it was placed through a cholangiocath clamp and inserted and cholangiograms able to be obtained after Anesthesia administer glucagon intravenously. Cholangiograms revealed free flow of contrast to the duodenum without filling defects and a slightly enlarged common hepatic, common bile, left and right hepatic ducts. Bile duct tapered nicely. There was no indication of choledocholithiasis. Cholangiocatheter removed. Cystic duct stump doubly clipped and divided. Gallbladder dissected free from liver bed using cautery for hemostasis, removing the gallbladder and small stones and good hemostasis ensured with the cautery. Irrigant and pneumoperitoneum evacuated. All instruments were removed. All skin incisions were approximated with interrupted subdermal 4-0 Monocryl and Morley glue applied. The patient tolerated the procedure well. Job ID: [id number]
== END 2020-06-08 17:33 | disposition home or self-care (01) ==
LOC: ERS 07:17 → ERHOLD 10:33 → SURG B 16:43
PROVIDERS: ADMIT Surgery; ATTEND Surgery
PROC: 0FT44ZZ Resection of Gallbladder, Percutaneous Endoscopic Approach (ICD-10-PCS; principal; 2020-06-08)
PROC: BF131ZZ Fluoroscopy of Gallbladder and Bile Ducts using Low Osmolar Contrast (ICD-10-PCS; 2020-06-08)
DX: K80.10 Calculus of gallbladder with chronic cholecystitis without obstruction (principal); R79.89 Other specified abnormal findings of blood chemistry; K76.0 Fatty (change of) liver, not elsewhere classified; E11.9 Type 2 diabetes mellitus without complications; I10 Essential (primary) hypertension; K66.0 Peritoneal adhesions (postprocedural) (postinfection); E78.00 Pure hypercholesterolemia, unspecified; K59.00 Constipation, unspecified; K43.9 Ventral hernia without obstruction or gangrene; K57.10 Diverticulosis of small intestine without perforation or abscess without bleeding; L03.311 Cellulitis of abdominal wall; E66.01 Morbid (severe) obesity due to excess calories; Z68.41 Body mass index [BMI] 40.0-44.9, adult; Z79.82 Long term (current) use of aspirin; Z79.84 Long term (current) use of oral hypoglycemic drugs; Z79.899 Other long term (current) drug therapy; Z98.890 Other specified postprocedural states
CPT/HCPCS: 47532; 47563; 74177; 76705; 80053 ×2; 81003; 82962; 83605; 83690 ×2; 83880; 84484; 85025 ×2; 87040; 87077; 87149 ×2; 87186; 93005; 99285; J1610; 36415; 36416; 85060; 88304; 96374; 96376; C9113; G0378; J1100; J1650; J1885; J2405; J2704; J3010; J3490; Q9967; S0020